=== PATIENT | female | born 1970 | race Caucasian/White ===

== ENCOUNTER 2018-08-16 10:57 | Observation (INO) | payer BC ==
[2018-08-16 11:41] LABS: Hemoglobin 14.9 g/dL (12.0-16.0); Mean Corpuscular Hemoglobin 32.6 pg (27.0-31.0); Mean Corpuscular Volume 98.7 fL (78.0-98.0); Mean Platelet Volume 8.2 fL (7.4-10.4); PTT 23.7 SEC (22.9-36.1); Platelet Count 102 thou/uL (130-400); Prothrombin Time 13.2 SEC (12.0-14.7); Red Blood Cell (RBC) Count 4.57 mill/uL (4.20-5.40); White Blood Cell (WBC) Count 6.5 thou/uL (4.8-10.8)
--- NOTE | 2018-08-16 11:48 | CT ---
CT HEAD WITHOUT CONTRAST: History: Stroke protocol. Left sided weakness. FINDINGS: The ventricles have normal size and position. No evidence of intracranial mass or hemorrhage. No evid ence of cortical infarct identified. There is a focal lucency seen in the inferior left thalamus region. Lacunar infarct, age indeterminat e, would be suspected. Further evaluation with MRI is recommended to assess this lesion. Osseous stru ctures are unremarkable. IMPRESSION: 1. No evidence of acute cortical infarct. 2. Abnormal lucency in the inferior left thalamus. Further evaluation with MRI is recommended. 3. Findings were relayed to Dr. Dailey at 11:18 a.m. POS: [facility]
[2018-08-16 11:51] LABS: #Basophils 0.1 thou/uL (0.0-0.2); #Lymphocytes 2.2 thou/uL (1.20-3.40); #Monocytes 0.4 thou/uL (0.11-0.59); #Neutrophils 3.8 thou/uL (1.40-6.50); %Eosinophils 0.4 % (0.0-10.0); %Lymphocytes 33.3 % (21.0-51.0); %Monocytes 6.3 % (0.0-10.0); ALT (SGPT) 16 U/L (8-55); AST (SGOT) 17 U/L (5-34); Albumin 4.1 g/dL (3.5-5.0); Alkaline Phosphatase 54 U/L (40-150); Anion Gap 14 mmol/L (10-20); BUN (Urea Nitrogen) 7 mg/dL (7.0-18.7); Bilirubin, Total 0.6 mg/dL (0.2-1.2); CK (CPK) 131 U/L (29-168); Calc. Creatinine Clearance 0 mL/min (70-130); Calcium 9.6 mg/dL (7.8-10.44); Carbon Dioxide 25 mmol/L (22-29); Chloride 105 mmol/L (98-107); Estimated GFR-MDRD 74; Globulin 2.8 g/dL (2.4-3.5); Glucose 104 mg/dL (70-105); Platelet Morphology Comment Appears Decreased; Potassium 3.8 mmol/L (3.5-5.1); Protein, Total 6.9 g/dL (6.0-8.3); RBC Morphology Normal; Sodium 140 mmol/L (136-145)
[2018-08-16 11:56] LABS: MDiff Complete? YES
--- NOTE | 2018-08-16 12:23 | RAD ---
CHEST 1 VIEW: Date: 08/16/18 HISTORY: Stroke protocol, chest pain. COMPARISON: Radiograph from 2013. FINDINGS: Lungs are clear. No pneumothorax or effusion. Cardiac silhouette and mediastinal contours within norm al limits. IMPRESSION: No acute intrathoracic abnormality. POS: [facility]
--- NOTE | 2018-08-16 12:26 | MRI ---
MRI BRAIN WITH AND WITHOUT CONTRAST: Date: 08/16/18 HISTORY: Evaluate for cerebrovascular accident. COMPARISON: MRI brain from 2013. CT brain dated 08/16/18. FINDINGS: On the diffusion-weighted imaging sequence, there are no abnormal areas of diffusion restriction. On the susceptibility-weighted imaging sequence, there are no abnormal areas of hemorrhage. Corresponding to the hypodensity of the left inferior thalamus is an area of old infarction as seen o n the 2013 exam. No midline shift. No mass effect. The [place] flow-voids are maintained. No hydrocephalus. G lobes are normal. No abnormal focal area of enhancement. IMPRESSION: 1. No acute intracranial hemorrhage or infarct. 2. Corresponding to the hypodensity seen on the recent CT is an area of involution of an old infarct ion as seen on the 2013 exam. POS: [facility]
[2018-08-16 13:25] LABS: Bilirubin Negative (Negative); Blood, Urine Negative (Negative); Clarity Cloudy (Clear); Glucose, Urine (Dipstick) Negative (Negative); Leukocyte Negative (Negative); Nitrite Negative (Negative); Protein, Urine (Dipstick) Negative (Neg-Trace); Specific Gravity, Urine 1.015 (1.005-1.030); Urobilinogen 0.2 mg/dL (0.2-1.0)
[2018-08-16] MEDS ORDERED: diphenhydrAMINE 25 MG CAP ONE (13:55)
[2018-08-16] MEDS ORDERED: Acetaminophen 500 MG TAB ONE (13:55)
[2018-08-16] MEDS ORDERED: Aspirin 325 MG TAB ONE (13:55)
[2018-08-16] MEDS ORDERED: HYDROcodone/Acetaminophen 5/325 mg Tablet PO PRN (17:20)
[2018-08-16] MEDS ORDERED: Acetaminophen 325 MG TAB PO PRN (17:20)
[2018-08-16] MEDS ORDERED: Loratadine 10 MG TAB PO PRN (17:39)
[2018-08-16] MEDS: Nicotine 14 MG PATCH TD SCH (18:21)
[2018-08-16] MEDS: Atorvastatin Calcium 40 MG TAB PO SCH (20:31)
[2018-08-16] MEDS: Famotidine 20 MG TAB PO SCH (20:31)
--- NOTE | 2018-08-16 20:50 | ULT ---
CAROTID DOPPLER 08/16/18 PROVIDED CLINICAL HISTORY: TIA. FINDINGS: Steel scale and color doppler sonography with spectral analysis was performed of the extracranial green tid system bilaterally. There is no evidence for a hemodynamically significant internal carotid arter y stenosis by peak systolic velocity or ratio criteria. Antegrade flow is seen in the vertebral arter ies. IMPRESSION: No sonographic evidence for hemodynamically significant internal carotid artery stenosis. POS: [facility]
--- NOTE | 2018-08-17 00:38 | HP ---
PRIMARY CARE PHYSICIAN: Fili Damon. CHIEF COMPLAINT: Frontal headache with right-sided weakness. HISTORY OF PRESENT ILLNESS: She reports that she had a headache yesterday, took a Tylenol and went to bed, woke up this morning, went to work, was unlocking the door and reports that she just did not feel right. Reports that she could not think straight or get her thoughts together, felt wobbly and off balance. The patient does have a history of two previous CVAs, one in 2012 and one in 2013 with residual affects or short-term memory deficits. The patient's daughter reports that she stopped taking the daily aspirin 4 months ago after her PCP told her it was no longer needed. Initial labs in the emergency room were unremarkable. The UA was also negative. The patient initially had a brain CT, which showed no evidence of acute cortical infarct, but did show some abnormal lucency in the inferior left thalamus. The patient has had a subsequent MRI of the brain, which showed no intracranial acute hemorrhage or infarct. Hypodensity seen on the CT scan is in the area of involution of old infarcts seen on the 2013 exam. Based on presentation and history, patient was admitted to the Stroke Observation Unit for further evaluation. ALLERGIES: SULFA. MEDICATIONS: None. PAST MEDICAL HISTORY: 1. CVA in 2013. 2. Prior TIA. 3. Cirrhosis. 4. Depression. 5. COPD. 6. Tobacco abuse. PAST SURGICAL HISTORY: 1. Tubal ligation. 2. Tonsillectomy. FAMILY HISTORY: The patient's grandfather had coronary artery disease at a very old age. SOCIAL HISTORY: The patient lives at home. She is a smoker, one pack a day x30 years. Denies any alcohol use. REVIEW OF SYSTEMS: CONSTITUTIONAL: Denies fever, denies chills. EYES: Denies any eye pain or eye changes. ENT: Denies sore throat or rhinorrhea. CARDIOVASCULAR: Denies chest pain or palpitations. RESPIRATORY: The patient reports cough yesterday. Denies shortness of breath. GI: Denies abdominal pain. Denies diarrhea, vomiting, or nausea. : Denies dysuria or hematuria. MUSCULOSKELETAL: Reports some posterior bilateral neck pain. SKIN: Denies rash or skin changes. NEUROLOGIC: Reports some right-sided weakness earlier today and reports a headache. PHYSICAL EXAMINATION: VITAL SIGNS: Blood pressure 102/63, pulse is 66, respirations are 19, temp is 98.1, pain 4, pulse ox is 97% on room air. CONSTITUTIONAL: The patient is in no apparent distress, is nontoxic appearing. HEENT: Head is atraumatic and normocephalic. ENT; mouth exam is normal. Mucous membranes are moist. NECK: Trachea is midline. No meningeal signs. RESPIRATORY/CHEST: Scattered rhonchi and some scattered wheezing. Otherwise, no signs of respiratory distress. CARDIOVASCULAR: Heart rate is regular rate and rhythm. Heart sounds are normal. ABDOMEN: Nontender on exam. Bowel sounds are heard. BACK: No tenderness. No CVA tenderness. EXTREMITIES: Upper extremity normal inspection. Strength is normal. Radial pulses equal bilaterally. Lower extremity, normal strength, normal inspection. Sensation intact. No edema noted. Pedal pulses equal bilaterally. NEURO: Speech is normal. Reflexes normal. No focal motor or sensory deficits. No cerebellar deficits. NIH score is zero. SKIN: Warm, dry, normal in color. PSYCH: Normal affect. IMAGING: EKG in the emergency room reads per minute 60, normal sinus rhythm, no ectopics. [place] is normal. Normal ST segments and T-waves. IMPRESSION AND PLAN: 1. Transient ischemic attack symptoms. National Institutes of Health Scale is zero. We will obtain carotid Doppler and echocardiogram. MRI has been completed. We will risk stratify, obtain lipid values in a.m. Start on aspirin, statins. 2. Chronic obstructive pulmonary disease. We will order neb treatments every 6 hours as needed. 3. Tobacco abuse. We will give smoking cessation counseling. 4. Psoriasis. 5. Deep venous thrombosis and gastrointestinal prophylaxis will be started. 6. Hospital course will be dependent on clinical findings. Job ID: [id number]
[2018-08-17 04:50] LABS: #Eosinphils 0.1 thou/uL (0.0-0.7); #Lymphocytes 1.9 thou/uL (1.20-3.40); #Monocytes 0.3 thou/uL (0.11-0.59); #Neutrophils 2.4 thou/uL (1.40-6.50); %Basophils 0.4 % (0.0-1.0); %Eosinophils 1.7 % (0.0-10.0); %Lymphocytes 41.1 % (21.0-51.0); %Monocytes 7.2 % (0.0-10.0); %Neutrophils 49.6 % (42.0-75.0); Hemoglobin 13.4 g/dL (12.0-16.0); Mean Corpuscular HGB CONC 33.3 g/dL (32.0-36.0); Mean Corpuscular Hemoglobin 33.5 pg (27.0-31.0); Mean Platelet Volume 8.1 fL (7.4-10.4); Platelet Count 101 thou/uL (130-400); RBC Distribution Width 11.7 % (11.5-14.5); White Blood Cell (WBC) Count 4.7 thou/uL (4.8-10.8)
[2018-08-17 05:09] LABS: ALT (SGPT) 12 U/L (8-55); AST (SGOT) 12 U/L (5-34); Albumin 3.5 g/dL (3.5-5.0); Alkaline Phosphatase 47 U/L (40-150); Anion Gap 12 mmol/L (10-20); BUN (Urea Nitrogen) 10 mg/dL (7.0-18.7); Bilirubin, Total 0.5 mg/dL (0.2-1.2); Calc. Creatinine Clearance 102 mL/min (70-130); Calcium 9.1 mg/dL (7.8-10.44); Carbon Dioxide 27 mmol/L (22-29); Cardiac Risk 2.1 (Less than 4.5); Chloride 107 mmol/L (98-107); Cholesterol 103 mg/dl (< 200 Desired); Estimated GFR-MDRD 76; Globulin 2.3 g/dL (2.4-3.5); Glucose 99 mg/dL (70-105); HDL Cholesterol 50 mg/dL (>60 Neg Risk); LDL Cholesterol, Calculated 47 mg/dL; Potassium 4.5 mmol/L (3.5-5.1); Protein, Total 5.8 g/dL (6.0-8.3); Sodium 141 mmol/L (136-145); Triglycerides 28 mg/dL (Less than 150)
[2018-08-17] MEDS: Enoxaparin Sodium 40 MG/0.4 ML SYRINGE SC SCH (09:12)
[2018-08-17] MEDS: Famotidine 20 MG TAB PO SCH ×2 (09:12→21:25)
[2018-08-17] MEDS: Aspirin 81 mg Enteric Coated Tablet PO SCH (09:12)
--- NOTE | 2018-08-17 14:24 | PDOC.PN ---
- Subjective Encounter Start Date: 08/17/18 Encounter Start Time: 14:22 Patient lying in bed with several family members at bedside, she reports feeling better. Headache resolved, weakness and facial droop improved. She denies chest pain, shortness of breath or abdominal pain. - Objective Resuscitation Status - Order Detail: 08/16/18 17:20 Resuscitation Status Routine Co-Sign Provider: Resuscitation Status: FULL: Full Resuscitation Discussed with: patient MAR Reviewed: Yes Vital Signs & Weight: Vital Signs (12 hours) Temp Pulse Pulse Resp BP BP Pulse Ox 08/17/18 12:00 97.4 F L 63 16 98/59 L 99 08/17/18 09:41 49 L 114/67 08/17/18 08:00 98 F 60 16 115/69 98 08/17/18 07:43 80 14 98 08/17/18 04:00 97.6 F 59 L 18 104/60 96 Weight Weight 170 lb I&O: 08/16/18 08/17/18 08/18/18 06:59 06:59 06:59 Intake Total 240 540 Balance 240 540 Result Diagrams: 08/17/18 04:35 08/17/18 04:35 Radiology Reviewed by me: Yes Phys Exam - Physical Examination Constitutional: NAD HEENT: PERRLA, moist MMs, oral pharynx no lesions Neck: no nodes, no JVD, supple Respiratory: no wheezing, no rales, no rhonchi, clear to auscultation bilateral Cardiovascular: RRR, no significant murmur, no rub Gastrointestinal: soft, non-tender, no distention, positive bowel sounds Musculoskeletal: no edema, pulses present Neurological: non-focal, normal sensation, moves all 4 limbs Lymphatic: no nodes Psychiatric: normal affect, A&O x 3 Skin: no rash, normal turgor, cap refill <2 seconds Dx/Plan (1) TIA (transient ischemic attack) Code(s): G45.9 - TRANSIENT CEREBRAL ISCHEMIC ATTACK, UNSPECIFIED Status: Acute (2) Migraine Code(s): G43.909 - MIGRAINE, UNSP, NOT INTRACTABLE, WITHOUT STATUS MIGRAINOSUS Status: Acute (3) COPD (chronic obstructive pulmonary disease) Status: Acute - Plan cont current plan of care, plan discussed w/ family * Continue medical management * Aspirin and statin therapy * MRI showing old infarct * Concern for TIA, may require more therapy addition to ASA * Consult Dr Drake * Await echo
[2018-08-17] MEDS: Nicotine 14 MG PATCH TD SCH (17:19)
[2018-08-17] MEDS: Atorvastatin Calcium 40 MG TAB PO SCH (21:25)
[2018-08-18 04:56] LABS: #Eosinphils 0.1 thou/uL (0.0-0.7); #Monocytes 0.4 thou/uL (0.11-0.59); #Neutrophils 3.1 thou/uL (1.40-6.50); %Basophils 0.5 % (0.0-1.0); %Eosinophils 1.2 % (0.0-10.0); %Lymphocytes 35.3 % (21.0-51.0); %Monocytes 7.4 % (0.0-10.0); %Neutrophils 55.6 % (42.0-75.0); Hemoglobin 13.2 g/dL (12.0-16.0); Mean Corpuscular HGB CONC 33.1 g/dL (32.0-36.0); Mean Corpuscular Hemoglobin 33.5 pg (27.0-31.0); Mean Platelet Volume 8.5 fL (7.4-10.4); Platelet Count 106 thou/uL (130-400); RBC Distribution Width 11.8 % (11.5-14.5); Red Blood Cell (RBC) Count 3.95 mill/uL (4.20-5.40); White Blood Cell (WBC) Count 5.7 thou/uL (4.8-10.8)
[2018-08-18 05:07] LABS: ALT (SGPT) 11 U/L (8-55); AST (SGOT) 10 U/L (5-34); Albumin 3.5 g/dL (3.5-5.0); Alkaline Phosphatase 48 U/L (40-150); Anion Gap 10 mmol/L (10-20); BUN (Urea Nitrogen) 13 mg/dL (7.0-18.7); Bilirubin, Total 0.2 mg/dL (0.2-1.2); Calc. Creatinine Clearance 99 mL/min (70-130); Carbon Dioxide 28 mmol/L (22-29); Chloride 107 mmol/L (98-107); Estimated GFR-MDRD 73; Globulin 2.2 g/dL (2.4-3.5); Glucose 112 mg/dL (70-105); Potassium 3.8 mmol/L (3.5-5.1); Protein, Total 5.7 g/dL (6.0-8.3); Sodium 141 mmol/L (136-145)
[2018-08-18] MEDS: Aspirin 81 mg Enteric Coated Tablet PO SCH (09:16)
[2018-08-18] MEDS: Enoxaparin Sodium 40 MG/0.4 ML SYRINGE SC SCH (09:17)
[2018-08-18] MEDS: Famotidine 20 MG TAB PO SCH (09:17)
[2018-08-18 09:24] VITALS: BMI 29.9
[2018-08-18 11:42] VITALS: BP 134/59; TEMP 98.1
--- NOTE | 2018-08-18 15:52 | CON ---
DATE OF CONSULTATION: 08/18/2018 TYPE OF CONSULTATION: Neurology consultation. CONSULTING PHYSICIAN: Hospitalist Service. IMPRESSION: Complex migraine. PLAN: 1. Aspirin 81 mg per day. 2. The patient can be discharged home. HISTORY OF PRESENT ILLNESS: Ms. Brito is a 48-year-old woman with past history of minor stroke. She presented with complaints of ongoing headache that was present for over 24 hours. The pain was primarily frontal and relatively severe. She tried some [id number] allergy medication, which did not seem to help. The following day, she felt a bit confused and was having some trouble speaking and she felt like the right side of her body was a bit weak. Her daughter thought that the left side of her face looked a bit droopy. She came to the emergency room yesterday for evaluation. Her CT scan of the brain was negative. She subsequently had an MRI of the brain later that morning, which was also negative other than prior area of injury involving the left thalamus. Her carotid ultrasound did not show any stenosis. Her vital signs have been stable, and she has been afebrile. Her symptoms have all cleared up since yesterday. She denies a history of migraine headaches. PAST MEDICAL HISTORY: Otherwise negative. ALLERGIES: SULFA AND AZITHROMYCIN. SOCIAL HISTORY: No illicit drugs or alcohol use. FAMILY HISTORY: Unremarkable. MEDICATIONS: Medication list was reviewed. REVIEW OF SYSTEMS: No complaints of nausea, vomiting, dizziness, loss of vision, double vision, neck pain, difficulty swallowing, chest pain, shortness of breath, abdominal pain, or joint pain. PHYSICAL EXAMINATION: GENERAL: She is a reasonably healthy-appearing middle-aged woman, in no distress. VITAL SIGNS: Blood pressure 90/50, pulse 69, respirations 18, and temperature 97.8. HEENT: Pupils are equal and reactive. Conjunctiva clear. Oropharynx clear. NECK: Supple. No lymphadenopathy. EXTREMITIES: No cyanosis, clubbing, or edema. NEUROLOGIC: She is alert and appropriate. Her speech is fluent and clear. Cranial nerves are intact. There are no focal deficits. She can walk independently. No abnormal movements were seen. LABORATORY STUDIES: CBC showed a white blood cell count of 6.5, hemoglobin 14.9, coags were normal. Chemistry panel was unremarkable including cholesterol ratio of 2.1, and clear urine. SUMMARY: This is a 48-year-old woman, who presented with a prolonged headache, followed by some transient neurologic symptoms without evidence of ischemic change on MRI. I suspect this is all migraine related. I agree with continuing aspirin. She can be discharged home. Job ID: [id number]
== END 2018-08-18 12:40 | disposition home or self-care (01) ==
LOC: SCSER 10:57 → 2SE 14:30
PROVIDERS: ADMIT Internal Medicine; ATTEND Internal Medicine
DX: G43.809 Other migraine, not intractable, without status migrainosus (principal); R53.1 Weakness; K74.60 Unspecified cirrhosis of liver; F32.9 Major depressive disorder, single episode, unspecified; J44.9 Chronic obstructive pulmonary disease, unspecified; F17.210 Nicotine dependence, cigarettes, uncomplicated; L40.9 Psoriasis, unspecified; I69.311 Memory deficit following cerebral infarction; Z88.1 Allergy status to other antibiotic agents; Z88.2 Allergy status to sulfonamides
CPT/HCPCS: 36415; 36416; 70450; 70553; 71045; 80053; 80061; 81003; 82550; 84443; 84484; 85025; 85610; 85730; 86850; 86900; 86901; 93005; 93306; 93880; 94640; 96372; G0378; J1650; J7620

== ENCOUNTER 2025-07-05 17:06 | Observation (INO) | payer BC ==
[~2025-07-05 17:06] MED LIST: Iopamidol 370 76% 100 ML VIAL ONE
[2025-07-05 17:25] LABS: #Basophils Less than 0.03 10x3/uL (0.0-0.2); #Eosinophils 0.06 10x3/uL (0.0-0.7); #Monocytes 0.42 10x3/uL (0.11-0.59); #Neutrophils 4.24 10x3/uL (1.40-6.50); %Basophils 0.1 % (0.0-1.0); %Eosinophils 0.9 % (0.0-10.0); %Lymphocytes 29.1 % (21.0-51.0); %Monocytes 6.3 % (0.0-10.0); %Neutrophils 63.3 % (42.0-75.0); Hematocrit 42.8 % (36.0-47.0); Hemoglobin 13.8 g/dL (12.0-16.0); Mean Corpuscular Hemoglobin 30.3 pg (27.0-31.0); Mean Corpuscular Volume 93.9 fL (78.0-98.0); Platelet Count 149 10x3/uL (130-400); Red Blood Cell (RBC) Count 4.56 mill/uL (4.20-5.40); White Blood Cell (WBC) Count 6.70 10x3/uL (4.8-10.8)
[2025-07-05 17:42] LABS: ALT (SGPT) 17 U/L (Less than 34); AST (SGOT) 29 U/L (11-34); Albumin 4.0 g/dL (3.1-4.5); Alkaline Phosphatase 70 U/L (40-110); Anion Gap 18 mmol/L (10-20); BUN (Urea Nitrogen) 10 mg/dL (9.8-20.1); Bilirubin, Total 0.5 mg/dL (0.3-1.2); Calc. Creatinine Clearance 0 mL/min (70-130); Calcium 9.9 mg/dL (7.8-10.44); Carbon Dioxide 24 mmol/L (22-29); Chloride 104 mmol/L (98-107); Globulin 3.3 g/dL (2.4-3.5); Glucose 94 mg/dL (70-105); Potassium 4.6 mmol/L (3.5-5.1); Sodium 141 mmol/L (136-145)
[2025-07-05] MEDS ORDERED: Aspirin Chewable 81 MG TAB ONE (17:56)
[2025-07-05] MEDS ORDERED: Acetaminophen 500 MG TAB ONE (18:00)
[2025-07-05] MEDS ORDERED: Acetaminophen 325 MG TAB PO PRN (18:52)
[2025-07-05] MEDS ORDERED: Melatonin 3 MG TAB PO PRN (18:52)
[2025-07-05] MEDS ORDERED: hydrALAZINE 20 MG/ML VIAL SLOW IVP PRN (18:52)
[2025-07-05 21:43] VITALS: BMI 38.2
[2025-07-05] MEDS: Rosuvastatin 5 MG TAB PO SCH (21:45)
[2025-07-05] MEDS: Heparin 5,000 UNITS/ML VIAL SC SCH (21:45)
[2025-07-06 07:16] LABS: #Basophils Less than 0.03 10x3/uL (0.0-0.2); #Eosinophils 0.06 10x3/uL (0.0-0.7); #Monocytes 0.34 10x3/uL (0.11-0.59); #Neutrophils 2.60 10x3/uL (1.40-6.50); %Basophils 0.4 % (0.0-1.0); %Eosinophils 1.3 % (0.0-10.0); %Lymphocytes 33.6 % (21.0-51.0); %Monocytes 7.5 % (0.0-10.0); %Neutrophils 57.0 % (42.0-75.0); Hematocrit 42.4 % (36.0-47.0); Hemoglobin 13.2 g/dL (12.0-16.0); Mean Corpuscular Hemoglobin 29.7 pg (27.0-31.0); Mean Corpuscular Volume 95.5 fL (78.0-98.0); Platelet Count 142 10x3/uL (130-400); Red Blood Cell (RBC) Count 4.44 mill/uL (4.20-5.40); White Blood Cell (WBC) Count 4.56 10x3/uL (4.8-10.8)
[2025-07-06 07:35] LABS: Anion Gap 13 mmol/L (10-20); BUN (Urea Nitrogen) 9 mg/dL (9.8-20.1); Calc. Creatinine Clearance 123 mL/min (70-130); Calcium 9.3 mg/dL (7.8-10.44); Carbon Dioxide 27 mmol/L (22-29); Cardiac Risk 2.4 (Less than 4.5); Chloride 108 mmol/L (98-107); Cholesterol 116 mg/dl (< 200 Desired); Glucose 93 mg/dL (70-105); HDL Cholesterol 49 mg/dL (>60 Neg Risk); LDL Cholesterol, Calculated 57 mg/dL; Potassium 4.1 mmol/L (3.5-5.1); Sodium 144 mmol/L (136-145); Triglycerides 49 mg/dL (Less than 150)
[2025-07-06] MEDS: Aspirin 81 mg Enteric Coated Tablet PO SCH (10:05)
[2025-07-06] MEDS: Ipratropium Bromide 2.5 ml Neb NEB SCH ×2 (11:10→14:16)
[2025-07-06] MEDS: Mometasone 200 MCG/Formoterol 5 MCG 120 PUFF INHALER INH SCH (11:10)
[2025-07-06 12:33] VITALS: BP 130/80; TEMP 97.9
[2025-07-06] MEDS ORDERED: Mometasone 200 MCG/Formoterol 5 MCG 120 PUFF INHALER INH SCH (18:30)
[2025-07-08] MEDS ORDERED: PNEUMOC 20-VAL CONJ-DIP CRM/PF 0.5 ML SYRINGE IM ONE (09:00)
== END 2025-07-06 16:25 | disposition home or self-care (01) ==
LOC: ERS 17:06 → PCU 18:52
PROVIDERS: ADMIT Internal Medicine; ATTEND Internal Medicine
DX: G45.9 Transient cerebral ischemic attack, unspecified (principal); I69.30 Unspecified sequelae of cerebral infarction; J44.9 Chronic obstructive pulmonary disease, unspecified; F32.A Depression, unspecified; Z79.51 Long term (current) use of inhaled steroids; Z79.899 Other long term (current) drug therapy; Z88.2 Allergy status to sulfonamides; Z88.1 Allergy status to other antibiotic agents; Z91.018 Allergy to other foods; Z79.82 Long term (current) use of aspirin
CPT/HCPCS: 36415; 36416; 70450; 70496; 70498; 70551; 80048; 80053; 80061; 84484; 85025; 93005; 93306; 94640; 96372; G0378; J1644; J7644; Q9967